=== PATIENT | female | born 1995 | race American Indian/Alaskan Native ===

== ENCOUNTER 2018-02-09 18:04 | Outpatient (CLI) | payer MEDICAID ==
[2018-02-09] MEDS ORDERED: LACTATED RINGERS 500 ML IV ONE (18:17)
[2018-02-09 19:46] LABS: Basophils % (Auto) 0.3 % (0.0-1.8); Eosinophils # (Auto) 0.1 K/mm3 (0.0-0.4); Eosinophils % (Auto) 1.3 % (0.0-4.3); Hematocrit 33.8 % (30.3-42.9); Hemoglobin 11.3 gm/dl (10.1-14.3); Lymphocytes # (Auto) 1.4 K/mm3 (1.2-5.4); Lymphocytes % (Auto) 18.3 % (13.4-35.0); Mean Corpuscular HGB Conc 34 % (30-34); Mean Corpuscular Volume 76 fl (79-97); Monocytes # (Auto) 0.5 K/mm3 (0.0-0.8); Monocytes % (Auto) 7.2 % (0.0-7.3); Platelet Count 242 K/mm3 (140-440); Red Blood Count 4.47 M/mm3 (3.65-5.03); Red Cell Distribution Width 14.2 % (13.2-15.2)
[2018-02-09 19:47] LABS: Mean Corpuscular Hemoglobin 25 pg (28-32)
[2018-02-09 19:59] VITALS: BP 90/45
[2018-02-09 20:00] LABS: Bacteria,Urine 2+ /HPF (Negative); Bilirubin,Urine NEG (Negative); Blood,Urine LG (Negative); Color,Urine Yellow (Yellow); Urobilinogen,Urine < 2.0 mg/dL (<2.0)
[2018-02-09] MEDS ORDERED: MACROBID PO ONE (20:05)
[2018-02-09 20:10] LABS: Amphetamine Screen,Urine PRESUMPTIVE NEGATIVE; Benzodiazepines Screen,Urine PRESUMPTIVE NEGATIVE; Cannabinoid Screen,Urine PRESUMPTIVE NEGATIVE; Cocaine Screen,Urine PRESUMPTIVE NEGATIVE; Methadone Screen,Urine PRESUMPTIVE NEGATIVE; Opiate Screen,Urine PRESUMPTIVE NEGATIVE
[2018-02-09] MEDS ORDERED: PYRIDIUM PO SCH ×2 (22:00)
== END 2018-02-09 21:10 | disposition home or self-care (01) ==
LOC: TRG 18:04
PROVIDERS: ATTEND Obstetrics & Gynecology
DX: O47.02 False labor before 37 completed weeks of gestation, second trimester (principal); Z3A.20 20 weeks gestation of pregnancy; Z88.6 Allergy status to analgesic agent
CPT/HCPCS: 36415; 80307; 81001; 85025; 87086; 96360; J7120; 87076; 87186

== ENCOUNTER 2018-02-11 10:34 | Outpatient (CLI) | payer MEDICAID ==
[2018-02-11] MEDS ORDERED: LACTATED RINGERS 500 ML IV ONE (10:59)
[2018-02-11 12:12] VITALS: BP 108/54
[2018-02-11 12:50] LABS: Bacteria,Urine 1+ /HPF (Negative); Bilirubin,Urine NEG (Negative); Blood,Urine NEG (Negative); Protein,Urine <15 mg/dL mg/dL (Negative)
[2018-02-11 12:53] LABS: Color,Urine Orange (Yellow)
[2018-02-11 12:57] LABS: Hematocrit 32.5 % (30.3-42.9); Hemoglobin 10.9 gm/dl (10.1-14.3); Mean Corpuscular HGB Conc 33 % (30-34); Mean Corpuscular Volume 76 fl (79-97); Platelet Count 235 K/mm3 (140-440); Red Blood Count 4.31 M/mm3 (3.65-5.03); Red Cell Distribution Width 14.3 % (13.2-15.2)
[2018-02-11 13:03] LABS: Mean Corpuscular Hemoglobin 25 pg (28-32)
[2018-02-11 13:05] LABS: Alanine Aminotransferase 11 units/L (7-56)
[2018-02-11] MEDS ORDERED: TYLENOL PO ONE (13:49)
--- NOTE | 2018-02-12 08:13 | Ultrasound Report ---
FINAL REPORT EXAM: US OB > = 14 WEEKS FETUS HISTORY: pt fell COMPARISONS: None. FINDINGS: Transabdominal grayscale, color and M-mode 2nd trimester ultrasound Single living intrauterine in breech presentation with recorded cardiac activity of 155 beats per minute. Amniotic fluid volume is subjectively normal. Cervix appears closed and measures 3.3 cm in length. Posterior placenta shows normal echotexture and morphology. No evident previa. Biparietal diameter is 4.7 cm Head circumference is 18.6 cm Abdominal circumference is 15.8 cm Femoral length is 3.4 cm Estimated gestational age is 20 weeks 5 days corresponding to delivery date of 06/26/2018, which is concordant with reported clinical dating. Imaged portions of the anatomy are grossly unremarkable. The diaphragm is not well visualized on this exam. IMPRESSION: Single living intrauterine with concordant size and dates and no evident complication. The diaphragm is not well visualized on this examination.
== END 2018-02-11 14:13 | disposition home or self-care (01) ==
LOC: TRG 10:34
PROVIDERS: ATTEND Obstetrics & Gynecology
DX: O47.02 False labor before 37 completed weeks of gestation, second trimester (principal); O99.332 Smoking (tobacco) complicating pregnancy, second trimester; Z3A.20 20 weeks gestation of pregnancy; Z88.6 Allergy status to analgesic agent
CPT/HCPCS: 36415; 76805; 81001; 82565; 83615; 84450; 84460; 84550; 85027

== ENCOUNTER 2018-04-01 15:30 | Outpatient (CLI) | payer MEDICAID ==
[2018-04-01 16:15] VITALS: BP 127/62
== END 2018-04-01 18:29 | disposition home or self-care (01) ==
LOC: TRG 15:30
PROVIDERS: ATTEND Obstetrics & Gynecology
DX: O47.02 False labor before 37 completed weeks of gestation, second trimester (principal); O99.512 Diseases of the respiratory system complicating pregnancy, second trimester; O99.212 Obesity complicating pregnancy, second trimester; J45.909 Unspecified asthma, uncomplicated; Z3A.27 27 weeks gestation of pregnancy; Z87.891 Personal history of nicotine dependence
CPT/HCPCS: 59025